=== PATIENT | male | born 1955 | race Caucasian/White ===

== ENCOUNTER → 2019-07-01 | Outpatient (CLI) | payer OTHER ==
--- NOTE | 2019-07-01 12:53 | PCVCIMAG ---
APPROVED REPORT Study performed: 07/01/2019 09:38:17 Exam: Stress Echocardiogram Indication: Chest pressure Patient Location: Echo lab Stress Nurse: Dorothea Rodriguez RN Status: routine Ht: 6 ft 2 in BP: 118/80 mmHg Rhythm: NSR Medical History Medical History: Hyperlipidemia, HTN Procedure The patient underwent an Exercise Stress Test using the Venkatesh Protocol. Blood pressure, heart rate, and EKG were monitored. An Echocardiogram was performed by data communications technician in four stages in quad fashion. At peak stress, four selected images were obtained and placed side by side with resting images for comparison. Stress Test Details Stress Test: Exercise stress testing was performed using a Venkatesh protocol. HR Resting HR: 64 bpmMax Heart Rate (APMHR): 157 bpm Max HR Achieved: 153 bpmTarget HR (85% APMHR): 133 bpm % of APMHR: 97 Recovery HR: 96 bpm HR response to stress: Normal HR response to stress BP Resting BP: 118/80 mmHg Max BP: 160/80 mmHg Recovery BP: 96/ mmHg BP response to stress: Normal blood pressure response to stress. ECG Resting ECG: Sinus Rhythm Stress ECG: Sinus Tachycardia ST Change: Upsloping ST depression Maximum ST Deviation: 0.5 mm Arrhythmia: None Recovery ECG: Sinus Rhythm Recovery ST Change: Normal Recovery ST Deviation: 0 mm Recovery Arrhythmia: None Clinical Reason for Termination: Maximal effort Exercise duration: 9 min 09 sec Highest Stage Achieved: Stage 3: 3.4 mph at 14% grade. Exercise capacity: 10.50 METs Overall Exercise Capacity for Age: Normal Angina Score: None Stress ECG Conclusion Clinical: Non-ischemic ECG: Non-ischemic Ruiz Treadmill Score is 6.5 which is Low risk. Pre-Stress Echo The resting Echocardiogram showed normal left ventricular contractility with an estimated Ejection Fraction of about 55-60%. Normal wall motion in all segments on baseline images. Post-Stress Echo The stress Echocardiogram showed normal left ventricular contractility with an estimated Ejection Fraction of about 60-65%. Clinical No clinical or ECG evidence for ischemia. Conclusion Clinical Response: Non-ischemic Exercise Capacity: Average Stress ECG Response: Equivocal Stress Echo Images: Non-ischemic The left ventricle is normal in size and wall thickness in both the rest and stress images. No significant valvular abnormalities. Normal stress echocardiogram with maximal exercise stress. History of false positive electrocardiographic response with exercise; normal coronary vasculature (2015) Other Information Study Quality: Technically Difficult <Conclusion> The left ventricle is normal in size and wall thickness in both the rest and stress images. No significant valvular abnormalities. Normal stress echocardiogram with maximal exercise stress. History of false positive electrocardiographic response with exercise; normal coronary vasculature (2015)
== END | disposition home or self-care (01) ==
LOC: PCVCIMAG 09:10
PROVIDERS: ATTEND Internal Medicine
DX: R07.89 Other chest pain (principal)
CPT/HCPCS: 93325; 93351